=== PATIENT | female | born 1975 | race Caucasian/White ===

== ENCOUNTER 2017-07-24 17:47 | Emergency (ER) | payer MEDICAID ==
--- NOTE | 2017-07-25 00:24 | ER ---
DATE SEEN: 07/24/2017 TIME SEEN: 1845 hours. CHIEF COMPLAINT: Pain wrist. HISTORY OF PRESENT ILLNESS: A 41-year-old female, who fell on both wrists, complaining of pain moderate to severe. REVIEW OF SYSTEMS: No fever. No other injuries. ALLERGIES: None. PHYSICAL EXAMINATION: VITAL SIGNS: Afebrile, normotensive. EXTREMITIES: Wrist exam reveals tenderness on the radial styloid process of both wrists, but normal full range of motion and peripheral pulses. DIAGNOSTIC DATA: X-ray of both wrists was negative. IMPRESSION: Wrist sprain x2. PLAN: Brace, elevation, ice, rest, Lina pOsvaldorOsvaldonOsvaldo /[id number] JUHI/TRESSA
--- NOTE | 2017-07-25 12:05 | CR ---
INDICATION: Fall, pain around thumb. RIGHT HAND: Three views of the right hand were obtained 07/24/2017 and revealed no fracture, dislocation, or other definite bone or joint abnormality. JIGNA
--- NOTE | 2017-07-25 12:07 | CR ---
INDICATION: Fall, pain at the base of the thumb and lower toward the wrist. LEFT WRIST: Three views of the left wrist were obtained and revealed slightly ill-defined trabeculae transversely across the distal metaphysis of the radius, raising question of a minimal partial cortical fracture in that area. This should be correlated clinically. A follow-up study in 10-14 days should be confirmatory. No other bone or joint abnormality was suggested. MTDD
== END 2017-07-24 18:58 | disposition home or self-care (01) ==
LOC: FB.ED 17:47
DX: S63.502A Unspecified sprain of left wrist, initial encounter (principal); S63.501A Unspecified sprain of right wrist, initial encounter; W19.XXXA Unspecified fall, initial encounter
CPT/HCPCS: 73110-LT; 73120-RT; 73130-RT; 99282